=== PATIENT | male | born 1960 | race Caucasian/White ===

== ENCOUNTER 2016-08-06 08:47 | Outpatient (CLI) | payer MEDICARE ==
[~2016-08-06] VITALS: Ht 182.9 cm; Wt 116.8 kg
--- NOTE | ~2016-08-06 | HEMODYNAMI ---
PATIENT:IVONE BARTLETT MEDICAL RECORD: [id number] : 62 LOCATION:[facility] ADMISSION DATE: 08/06/16 Generatedon:08/06/201612:08 Patient name: IVONE BARTLETT Patient #: [id number] SSN: [id number] : 1960 Date of study: 08/06/2016 Page: Of Hemodynamic Procedure Report Patient Data Patient Demographics Procedure consent was obtained First Name: IVONE Gender: Male Last Name: TRI : 1960 Middle Initial: W Age: 56 year(s) Patient #: [id number] Race: Unknown SSN: [id number] Additional ID: [id number] Contact details [address]: [address] [place] [address] State: [place] City: [place] Zip code: [address] Past Medical History Allergies Allergen Reaction Date Comments Reported Other allergy 05/20/2014 Methalate Admission Admission Data Admission Date: 08/06/2016 Admission Time: 8:47 Arrival Date: 08/06/2016 Arrival Time: 10:30 Admit Source: Other Insurance Payor: Medicare Height (in.): 70 BSA: 2.37 (m2) Height (cm.): 177.8 BMI: 38.88 (kg/m2) Weight (lbs.): 271 Weight (kg.): 122.92 Lab Results Lab Result Date: 08/06/2016 Lab Result Time: 0:00 Biochemistry Name Units Result Min Max BUN mg/dl 15 --(--*-)-- 7 18 Creatinine mg/dl 0.9 --(-*--)-- 0.6 1.3 CBC Name Units Result Min Max Hemoglobin g/dl 10.9 *-(----)-- 13.5 17.5 Procedure Procedure Types Cath Procedure Diagnostic Procedure C [facility] w/Coronaries PCI Procedure Coronary Stent Initial Miscellaneous Procedures Moderate Sedation up to 30 minutes Peripheral Cath Diagnostic Procedure Cath Peripheral Jlthm-Zccwzfz-Kgv-Off Peripheral vascular Intervention Stent Stent-Fem/Popw/plasty Procedure Description Procedure Date Procedure Date: 08/06/2016 Procedure Start Time: 11:34 Procedure End Time: 12:03 Procedure Staff Name Function Yves Mcintosh MD Performing Physician Taya Wyman RT Scrub Juan Daniel Mccollum RN Nurse Neeru Hull RT Monitor Procedure Data Cath Procedure Fluoroscopy Diagnostic fluoroscopy Total fluoroscopy Time: 6.5 time: 6.5 min min Diagnostic fluoroscopy Total fluoroscopy dose: dose: 1267 mGy 1267 mGy Contrast Material Contrast Material Type Amount (ml) Isovue 370 149 Entry Location Entry Primary Successful Side Size Upsize Upsize Entry Closure Succes sful Closure Location (Fr) 1 (Fr) 2 (Fr) Remarks Device Remarks Femoral Right 5 Fr 6 Fr 6 Fr Exoseal artery Short Long Estimated blood loss: 5 ml Diagnostic catheters Device Type Used For End Catheter Placement Cordis 5Fr Pigtail LV Angiography Catheter (MP) Cordis 5Fr JL 4.0 Left Coronary Catheter (MP) Angiography Cordis 5Fr 3DRC Catheter Right Coronary (MP) Angiography Cordis Tempo 5Fr UF Multi-vessel catheter Angiography Procedure Complications No complications Procedure Medications Medication Administration Route Dosage Oxygen NC 2 l/min Lidocaine 2% added to field 20 Heparin Flush Bag added to field 2 bags (1000units/500ml NS) 0.9% NaCl I.V. 100 ml/hr Benadryl I.V. 50 mg Versed I.V. 1 mg Fentanyl I.V. 100 mcg Versed I.V. 1 mg Fentanyl I.V. 100 mcg Versed I.V. 1 mg Fentanyl I.V. 50 mcg Heparin Bolus I.V. 4000 units Integrilin (Bolus I.V. 11.3 ml 2mg/ml) Versed I.V. 1 mg Fentanyl I.V. 50 mcg Plavix P.O. 600 mg Hemodynamics Rest BSA: 2.37 (m2) HGB: 10.9 (g/dl) O2 Consumption: Estimated: 286.63 (ml/min) O2 Co nsumption indexed: Estimated:120.94 (ml/min/m) Heart Rate: 76 (bpm) Snapshots Pre Cath Intra NCS Post Cath Vital Signs Time Heart Resp SPO2 etCO2 VH1diyi NIBP (mmHg) Rhythm Pain Sedatio n Rate (ipm) (%) (mmHg) (mmHg) Status Level (bpm) 11:12:27 76 18 100 0 0 No Cuff NSR 0 (11) 10(A) , No pain 11:16:18 73 25 100 0 0 165/98(143) NSR 0 (11) 10(A) , No pain 11:20:34 72 32 99 0 0 168/94(134) NSR 0 (11) 10(A) , No pain 11:24:56 77 15 98 0 0 171/93(123) NSR 0 (11) 10(A) , No pain 11:29:19 78 21 96 0 0 145/102(126) NSR 0 (11) 10(A) , No pain 11:33:35 70 20 97 0 0 143/100(132) NSR 0 (11) 10(A) , No pain 11:37:46 78 21 97 0 0 141/98(111) NSR 0 (11) 10(A) , No pain 11:41:56 74 17 96 0 0 158/101(138) NSR 0 (11) 9(A) , No pain 11:46:14 80 15 96 0 0 173/91(128) NSR 0 (11) 9(A) , No pain 11:50:35 84 16 96 0 0 173/105(125) NSR 0 (11) 9(A) , No pain 11:55:03 79 15 98 0 0 169/80(114) NSR 0 (11) 9(A) , No pain 11:59:25 81 17 96 0 0 147/86(104) NSR 0 (11) 9(A) , No pain 12:03:41 78 16 96 0 0 135/90(115) NSR 0 (11) 10(A) , No pain Medications Time Medication Route Dose Verified Delivered Reason Not es Effectiveness by by 11:14:41 Oxygen NC 2 l/min Yves Buffie used for Dayna Mccollum RN procedure 11:18:31 Lidocaine 2% added 20ml Yves Buffie for local to vial Dayna Mccollum RN anesthetic field 11:19:29 Heparin Flush added 2 bags Yves Buffie used for Bag to Dayna Mccollum RN procedure (1000units/500ml field NS) 11:19:38 0.9% NaCl I.V. 100ml/hr Yves Frances Per physician Dayna Mccollum RN 11:19:50 Benadryl I.V. 50 mg Yves Frances used for Dayna Mccollum RN procedure 11:33:53 Versed I.V. 1 mg Yves Márquezie for sedation Dayna Mccollum RN 11:34:00 Fentanyl I.V. 100 mcg Yves Frances for sedation Dayna Mccollum RN 11:37:28 Versed I.V. 1 mg Yves Márquezie for sedation Dayna Mccollum RN 11:37:32 Fentanyl I.V. 100 mcg Yves Frances for sedation Dayna Mccollum RN 11:40:02 Versed I.V. 1 mg Yves Frances for sedation Dayna Mccollum RN 11:40:05 Fentanyl I.V. 50 mcg Yves Frances for sedation Dayna Mccollum RN 11:46:35 Heparin Bolus I.V. 4000 Yves Frances for julius ified units Dayna Mccollum RN anticoagulation with dr mcintosh 11:49:04 Integrilin I.V. 11.3 ml Yves Frances for was elijah (Bolus 2mg/ml) Dayna Mccollum RN antiplatelet 8.7 ml therapy of vial 11:56:46 Versed I.V. 1 mg Yvse Frances for sedation Dayna Mccollum RN 11:56:50 Fentanyl I.V. 50 mcg Yves Frances for sedation Dayna Mccollum RN 12:07:43 Plavix P.O. 600 mg Yves Frances for Dayna Mccollum RN antiplatelet therapy Procedure Log Time Note 10:54:44 Patient Height : 70 cm 10:54:56 Patient Weight : 271 kg 10:54:58 Arrival Date: 08/06/2016 10:30:00 AM 10:55:00 Admit Source: Other 10:55:45 Diagnostic Cath Status : Elective 10:56:31 Juan Daniel Mccollum RN sent for patient. Start room use. 10:56:32 Time tracking: Regular hours 10:56:38 Plan of Care:Hemodynamics will remain stable., Cardiac rhythm will remain stable., Comfort level will be maintained., Respiratory function will remain adequate., Patient/ family verbilizes understanding of procedure., Procedure tolerated without complication., Recovers from procedure without complications.. 10:56:45 Patient received from Pre/Post Procedure Room to CCL 1 Alert and oriented. Tansferred to table in Supine position. 10:57:02 H&P Date Dictated: 08/03/2016 Within 30 days and on chart., H&P Addendum completed by physician on day of procedure. (MUST COMPLETE FOR ALL OUTPATIENTS). 10:57:04 Pre-procedure instructions explained to patient. 10:57:07 Family in waiting room. 10:57:10 Patient NPO since Midnight. 10:58:02 Is the patient allergic to Iodine/contrast media? No. 10:58:05 Is patient on blood thinner?Yes 10:58:09 ACC The patient was administered the following blood thiners within the last 24 hours: ACCPlavix 10:58:11 Patient diabetic? Yes. 10:58:13 If diabetic: On Metformin? Yes 10:58:39 If on Metformin: Last Dose? 08/03/2016 10:58:46 Snore? Yes 11:11:33 Warm blankets applied, and will hugger turned on for patient comfort. 11:11:34 Correct patient and procedure confirmed by team. 11:11:35 Signed procedure consent form obtained from patient. 11:11:36 ECG and BP/O2 sat monitors applied to patient. 11:11:36 Vital chart was started 11:11:37 Baseline sample Acquired. 11:11:42 Rhythm: sinus rhythm 11:11:44 Full Disclosure recording started 11:11:48 Sleep apnea? No 11:11:49 Deviated septum? No 11:11:50 Opens mouth fully? Yes 11:11:50 Sticks out tongue? Yes 11:11:52 Airway obstruction? No ? 11:11:56 Dentures? No ? 11:12:04 Pre procedure: right dorsailis pedis pulse Doppler 11:12:08 Pre procedure: left dorsailis pedis pulse Doppler 11:12:11 Patient pain scale 0/10 ?. 11:12:19 IV patent on arrival in right hand with 0.9% NaCl at O. 11:14:41 Oxygen 2 l/min NC was administered by Juan Daniel Mccollum RN; used for procedure; 11:15:51 Lab Result : BUN 15 mg/dl 11:15:51 Lab Result : Hemoglobin 10.9 g/dl 11:15:51 Lab Result : Creatinine 0.9 mg/dl 11:15:55 Lab results completed and on chart. 11:16:00 Bilateral groins area was prepped with chlora-prep and aped in sterile fashion 11:16:01 Alarms reviewed by R. N. 11:16: Sharps counted by scrub and verified by R.N. 11:18:31 Lidocaine 2% 20ml vial added to field was administered by Juan Daniel Mccollum RN; for local anesthetic; 11:19:29 Heparin Flush Bag (1000units/500ml NS) 2 bags added to field was administered by Juan Daniel Mccollum RN; used for procedure; 11:19:38 0.9% NaCl 100ml/hr I.V. was administered by Juan Daniel Mccollum RN; Per physician; 11:19:50 Benadryl 50 mg I.V. was administered by Juan Daniel Mccollum RN; used for procedure; 11:24:00 Insurance Payor : Medicare 11:24:22 Physician paged 11:32:33 Physician arrived 11:32:34 --------ALL STOP TIME OUT------ 11:32:34 Final Timeout: patient, procedure, and site verified with staff and physician. All members of the team are in agreement. 11:32:37 Bilateral groins site verified by team. 11:32:39 Physical assessment completed. ASA score P 2 - A patient with mild systemic disease as per Yves Mcintosh MD. 11:32:42 Sedation plan: IV Moderate Sedation Versed, Fentanyl 11:32:48 Use device set Femoral Dx 11:32:49 Acist Syringe opened to sterile field. 11:32:49 Bag Decanter opened to sterile field. 11:32:50 Medline Cath Pack opened to sterile field. 11:32:50 Terumo 5Fr Campti Sheath opened to sterile field. 11:32:51 St Steven 260cm J .035 wire opened to sterile field. 11:32:52 Acist Hand Control opened to sterile field. 11:32:53 Acist Manifold opened to sterile field. 11:32:53 Diagnostic Infinity 5Fr Multipack catheter opened to sterile field. 11:32:53 Tegaderm 4 x 4 opened to sterile field. 11:33:02 Zero performed for pressure channel P1 11:33:09 Zero performed for pressure channel P1 11:33:16 Zero performed for pressure channel P1 11:33:27 Zero performed for pressure channel P1 11:33:38 Procedure started. 11:33:53 Versed 1 mg I.V. was administered by Juan Daniel Mccollum RN; for sedation; 11:34:00 Fentanyl 100 mcg I.V. was administered by Juan Daniel Mccollum RN; for sedation; 11:34:58 Local anesthetic to right femoral artery with Lidocaine 2% by Yves Mcintosh MD.INITIAL ACCESS ONLY 11:37:28 Versed 1 mg I.V. was administered by Juan Daniel Mccollum RN; for sedation; 11:37:32 Fentanyl 100 mcg I.V. was administered by Juan Daniel Mccollum RN; for sedation; 11:39:02 Merit 18G 9cm Percutaneous Entry needle opened to sterile field. 11:39:33 A 5 Fr sheath was inserted into the Right Femoral artery 11:40:02 Versed 1 mg I.V. was administered by Juan Daniel Mccollum RN; for sedation; 11:40:05 Fentanyl 50 mcg I.V. was administered by Juan Daniel Mccollum RN; for sedation; 11:40:28 A Cordis 5Fr Pigtail Catheter (MP) was advanced over the wire and used for LV Angiography. 11:40:34 LV hemodynamics recorded. 11:40:35 LV gram done using ARROYO 11:40:40 EF : 55 % 11:40:43 Catheter removed. 11:41:19 Abdominal angiogram w/ runoff was performed. 11:42:39 Catheter removed. 11:42:43 A Cordis 5Fr JL 4.0 Catheter (MP) was advanced over the wire and used for Left Coronary Angiography. 11:43:05 LCA angiography performed. 11:43:08 Injector settings: Ml/sec: 3, Volume: 6, 11:44:16 Catheter removed. 11:44:22 A Cordis 5Fr 3DRC Catheter (MP) was advanced over the wire and used for Right Coronary Angiography. 11:44:35 RCA angiography performed. 11:44:38 Injector settings: Ml/sec: 3, Volume: 6, 11:44:43 Catheter removed. 11:44:45 Proceeding to intervention. 11:45:56 Medtronic Launcher 6Fr AR 2.0 guide catheter opened to sterile field. 11:45:57 James Whisper J 300cm 0.014 guide wire opened to sterile field. 11:45:57 SampleOn Inc BasixCompak Inflation Kit opened to sterile field. 11:45:58 Terumo 6Fr Campti Sheath opened to sterile field. 11:46:21 Medtronic Launcher 6Fr HS II guide catheter opened to sterile field. 11:46:35 Heparin Bolus 4000 units I.V. was administered by Juan Daniel Mccollum RN; for anticoagulation; verified with dr mcintosh 11:47:18 Terumo TORQUE DEVICE PLASTIC .038 opened to sterile field. 11:47:19 Terumo ANGLE 260cm glide wire opened to sterile field. 11:47:28 Sheath upsized to a 6 Fr Short. 11:47:36 6 Fr hs 2 guide catheter was inserted over the wire 11:47:40 whisper wire advanced. 11:47:43 Wire advanced across lesion. 11:48:28 Inflation Number: 1 A Medtronic Integrity 3.0 X 22 stent was prepped and advanced across the Mid RCA. The stent was deployed at 11 MALU for 0:10 (min:sec). 11:49:04 Integrilin (Bolus 2mg/ml) 11.3 ml I.V. was administered by Juan Daniel Mccollum RN; for antiplatelet therapy; wasted 8.7 ml of vial 11:49:12 Stent catheter was removed intact over wire. 11:49:13 Wire removed. 11:49:13 Guide catheter removed. 11:50:04 Arrow 6Fr 45cm Sheath opened to sterile field. 11:50:49 Sheath upsized to a 6 Fr Long. 11:51:04 A [employer] Tempo 5Fr UF catheter was advanced over the wire and used for Multi-vessel Angiography. 11:51:11 glide wire advanced. 11:55:30 Inflation number: 1 A Cordis Powerflex Pro 6.0 x 40 x 135cm balloon was prepped and advanced across the Mid Common Femoral, Left, then inflated to 7 MALU for 0:10 (min:sec). 11:55:36 Balloon removed over the wire. 11:56:46 Versed 1 mg I.V. was administered by Juan Daniel Mccollum RN; for sedation; 11:56:50 Fentanyl 50 mcg I.V. was administered by Juan Daniel Mccollum RN; for sedation; 11:57:22 Cordis SMART 7 X 40 X 120 stent was deployed across Mid Common Femoral, Left . 11:57:31 Stent catheter was removed intact over wire. 11:58:33 Inflation number: 2 The Cordis Powerflex Pro 6.0 x 40 x 135cm balloon was reinflated across the Mid Common Femoral, Left, to 11 MALU for 0:10 (min:sec). 11:58:55 Balloon removed over the wire. 11:58:56 Wire removed. 11:59:50 Sheath downsized to 6F short pinnacle 12:00:00 Cordis 6Fr Exoseal opened to sterile field. 12:00:15 Sheath removed intact; hemostasis achieved with Exoseal to the Right Femoral artery. 12:00:19 Procedure ended.(Physican Out) 12:01:32 Fluoroscopy time 06.50 minutes. 12:01:49 Fluoroscopy dose: 1267 mGy 12:01:49 Flurop Dose total: 1267 12:01:53 Contrast amount:Isovue 370 149ml. 12:01:55 Sharps counted by scrub and verified by R.N. 12:01:56 Insertion/operative site no bleeding no hematoma. 12:01:59 Post-op/insertion site Right Femoral artery dressed using a 4 x 4 and Tegaderm. 12:02:01 Post right femoral artery:stable 12:02:23 Post Procedure Pulses reassessed and unchanged 12:02:29 Post procedure rhythm: unchanged. 12:02:32 Estimated blood loss: 5 ml 12:02:34 Post procedure instruction explained to patient.Patient verbalizes understanding. 12:02:34 Patient needs reinforcement of post procedure teaching. 12:03:30 Procedure type changed to Cath procedure, Diagnostic procedure, LHC, LHC w/Coronaries, PCI procedure, Coronary Stent Initial, Miscellaneous Procedures, Moderate Sedation up to 30 minutes, Peripheral Cath Diagnostic Procedure, Cath Peripheral, Cnahs-Pxfyaxk-Lkw-Off, Peripheral vascular Intervention, Stent, Stent-Fem/Popw/plasty 12:03:32 Procedure and supply charges have been captured, reviewed, submitted and are correct. 12:03:37 Procedure Complication : No complications 12:03:39 Vital chart was stopped 12:03:40 See physician's report for complete and final results. 12:03:44 Report given to Pre/Post Procedure Room. 12:03:48 Patient transfered to Pre/Post Procedure Room with Stretcher. 12:03:50 Procedure ended. 12:03:50 Full Disclosure recording stopped 12:03:59 ACC-PCI Only Patient was given prescriptions, or instructed by Yves Mcintosh MD to start/continue the following medications upon discharge: Plavix 12:04:00 End room use (Document Last) 12:07:43 Plavix 600 mg P.O. was administered by Juan Daniel Mccollum RN; for antiplatelet therapy; Intervention Summary Intervention Notes Time ActionType Lesion and Equipment Action# Pressure Duration Attributes Used 11:48:28 Place stent Mid RCA Medtronic 1 11 00:10 Integrity 3.0 X 22 stent 11:55:30 Inflate Mid Common Cordis 1 7 00:10 balloon Femoral, Powerflex Left Pro 6.0 x 40 x 135cm balloon 11:57:22 Deploy self Mid Common Cordis 1 expanding Femoral, SMART 7 X stent Left 40 X 120 stent 11:58:33 Reinflate Mid Common Cordis 2 11 00:10 balloon Femoral, Powerflex Left Pro 6.0 x 40 x 135cm balloon Device Usage Item Name Manufacture Quantity Catalog Hospital Part Current Minimal Lot# / Number Charge Number Stock Stock Serial# Code Acist Acist 1 44685 [id number] 032740 529560 20 Syringe Medical Systems Inc Bag Decanter Microtek 1 2002S 459141 24791 044866 5 Medical Inc. Medline Cath Cardinal 1 [id number] 769168 86001 699065 5 Pack Health Terumo 5Fr Terumo 1 [id number] 846186 570751 246216 [address] [facility] Steven 1 182078 084795 883902 822679 30 260cm J .035 wire Acist Hand Acist 1 76904 724128 558705 751701 5 Control Medical Systems Inc Acist Acist 1 95158 317958 430140 019925 5 Matrix Electronic Measuring Medical Systems Inc Diagnostic Cardinal 1 CX2235 237389 80075 690422 30 Infinity 5Fr Health Multipack catheter Tegaderm 4 x 3M 1 1626W 197750 438494 337680 5 4 Merit 18G Merit 1 [id number] 093177 672818 471953 5 9cm Medical Percutaneous Entry needle Cordis 5Fr Cardinal 1 006701 5 Pigtail Health Catheter (MP) Cordis 5Fr Cardinal 1 107551 5 JL 4.0 Health Catheter (MP) Cordis 5Fr Cardinal 1 129644 5 3DRC Health Catheter (MP) Medtronic Medtronic 1 [id number] 685332 00087 016685 1 Launcher 6Fr AR 2.0 guide catheter James James 1 [id number] 818346 835452 643980 5 Whisper J Vascular 300cm 0.014 guide wire Merit Merit 1 [id number] 019989 137176 088657 15 BasixCompak Medical Inflation Kit Terumo 6Fr Terumo 1 QTE072 444646 927098 186860 40 Campti Sheath Medtronic Medtronic 1 [id number] 674241 17681 280385 1 Launcher 6Fr HS II guide catheter Terumo Hannah 1 TD01 341998 191128 275728 5 TORQUE Scientific DEVICE PLASTIC .038 Terumo ANGLE Terumo 1 [id number] 492284 955994 288330 5 260cm glide wire Medtronic Medtronic 1 [id number] 291202 144929 1 [id number] Integrity 3.0 X 22 stent Arrow 6Fr Teleflex 1 CL-06376 303861 442991 796950 5 45cm Sheath Cordis Tempo Cardinal 1 [id number] 026195 993046 671493 10 5Fr UF Health catheter Cordis Cardinal 1 [id number] 157345 992329 822457 5 Powerflex Health Pro 6.0 x 40 x 135cm balloon Cordis SMART Cardinal 1 [id number] 995019 337589 0 [id number] 7 X 40 X 120 Health stent Cordis 6Fr Cardinal 1 [id number] 782898 957509 650960 10 [employer] [facility] Soc[employer] Signature Audit [place] Stage Time Signature Unsigned Intra-Procedure 08/06/2016 Neeru Hull 12:08:46 PM RT(R) Signatures Monitor : Neeru Hull RT Signature : Date : Time : [facility] [address] [place] [address]
[~2016-08-06 08:47] MED LIST: ACETAMINOPHEN325 MG PO; ACIDOPHILUS LAC1 CAP PO; BACLOFEN10 MG PO; BAYER CHEWABLE81 MG PO; CLEOCIN HCL300 MG PO; COLACE100 MG PO; COREG25 MG PO; CYMBALTA60 MG PO; DILANTIN50 MG PO; DURAGESIC1 PATCH .3 TRANSDERM; FUROSEMIDE20 MG PO; GABAPENTIN100 MG PO; JANUVIA50 MG PO; KADIAN60 MG PO; KLONOPIN1 MG PO; LIPITOR10 MG PO; LIPITOR40 MG PO; LISINOPRIL10 MG PO; LYRICA200 MG PO; MIRALAX17 GM PO; MULTIPLE VITAMI1 TA1 PO; NITROSTAT0.4 MG SL; PEPCID40 MG PO; PERCOCET 10/3251 TA1 PO; PLAVIX75 MG PO; PRILOSEC20 MG PO; SEROQUEL50 MG PO; TOPROL XL25 MG PO; TRAZODONE HCL150 MG PO; TRIGLIDE160 MG PO; TYLENOL W/CODEI1 TAB PO; VITAMIN D31000 UNIT PO; VITAMIN D5000 UNIT; VITAMIN D5000 UNIT PO
[2016-08-06 09:11] VITALS: BP 105/65; BMI 37.4
[2016-08-06] MEDS ORDERED: HUMULIN 70100 UNIT/1 SC ×3 (09:20→09:21)
[2016-08-06] MEDS ORDERED: LANTUS INSULIN10 ML SC (09:22)
[2016-08-06] MEDS ORDERED: KLONOPIN0.5 MG PO (09:23)
[2016-08-06] MEDS ORDERED: OMNICEF300 MG PO (09:25)
[2016-08-06] MEDS ORDERED: OMEPRAZOLE20 M1 (09:28)
[2016-08-06] MEDS ORDERED: PROVERA 5 MG TAB5 MG PO (09:28)
[2016-08-06] MEDS ORDERED: OMEPRAZOLE20 M1 PO (09:29)
[2016-08-06] MEDS ORDERED: SYNTHROID88 MCG (09:31)
[2016-08-06] MEDS ORDERED: GABAPENTIN100 MG PO (09:33)
[2016-08-06] MEDS ORDERED: ACETAMINOPHEN325 MG PO (09:33)
[2016-08-06] MEDS ORDERED: MELATONIN 3 MG1 TAB PO (09:34)
[2016-08-06 09:35] LABS: BASOPHILS 0.3 % (0-2); EOSINOPHILS 2.8 % (0-7); HEMATOCRIT 34.5 % (42.0-54.0); HEMOGLOBIN 10.9 g/dL (13.5-17.5); IMMATURE GRANULOCYTES 0.4 % (0-5); LYMPHOCYTES 21.2 % (15-50); MCH 28.5 pg (26.0-34.0); MCHC 31.6 g/dL (31.0-37.0); MCV 90.1 fL (80.0-100.0); MEAN PLATELET VOLUME 10.1 fL (7.4-10.4); MONOCYTES 7.2 % (2-11); NEUTROPHILS 68.1 % (40-80); RBC 3.83 10x6/uL (4.20-6.10); RDW 14.8 % (11.5-14.5); WBC 9.5 10x3/uL (4.8-10.8)
[2016-08-06] MEDS ORDERED: REQUIP0.25 MG PO (09:35)
[2016-08-06 09:36] LABS: PLATELET COUNT 278 10x3/uL (130-400)
[2016-08-06] MEDS ORDERED: VITAMIN B-122500 MCG PO (09:37)
[2016-08-06] MEDS ORDERED: VITAMIN D5000 UNIT PO (09:39)
[2016-08-06] MEDS ORDERED: CLARITIN 10 MG10 MG PO (09:39)
[2016-08-06] MEDS ORDERED: FOLIC ACID1 MG PO (09:40)
[2016-08-06] MEDS ORDERED: TRADJENTA5 MG PO (09:41)
[2016-08-06] MEDS ORDERED: TRICOR145 MG PO (09:42)
[2016-08-06] MEDS ORDERED: SIMETHICONE PO (09:45)
[2016-08-06 09:47] LABS: CALC OSMOLALITY 286 mosm/kg (275-300); CALCIUM 8.9 mg/dL (8.5-10.1); CHLORIDE - SERUM 106 mmol/L (98-107); CREATININE - SERUM 0.9 mg/dL (0.6-1.3); GLUCOSE 157 mg/dL (74-106); POTASSIUM - SERUM 4.3 mmol/L (3.5-5.1); SODIUM 142 mmol/L (136-145); UREA NITROGEN 15 mg/dL (7-18); eGFR NON AFRICAN AMERICAN > 90 mL/min (90-120)
[2016-08-06 10:01] LABS: CKMB 1.1 U/L (0.0-3.6); CREATINE KINASE 116 UL (21-232)
[2016-08-06 10:02] LABS: TROPONIN-I < 0.017 ng/mL (0.000-0.060)
--- NOTE | 2016-08-06 12:47 | NUR ---
TRANSFER FROM FOOD PHOTOGRAPHER. VS WNL. RIGHT GROIN STABLE WITHOUT BLEEDING OR HEMATOMA NOTED.
[2016-08-06 13:22] VITALS: BP 162/74; Ht 182.9 cm; Wt 116.8 kg
--- NOTE | 2016-08-06 16:05 | NUR ---
BED REST UP. GROIN STABLE.
--- NOTE | 2016-08-06 17:06 | NUR ---
BRAX[place] CALLED VALENTÍN, CLINICAL LIAISON FOR [facility], , NOTIFIED THAT PT WILL BE READY TO DISCHARGE BACK TO [facility] IN THE MORNING AT 0800. CM FAXED DISCHARGE ORDER AND CHART TO [facility] AT [phone]. FOR DISCHARGE, NURSE REPORT TO BE CALLED TO [facility] AT [phone], FAX DISCHARGE INFORMATION TO [phone]. [facility] TO PROVIDE VAN TRANSPORTATION IF PT IS ABLE TO SIT FOR DURATION OF TRIP TO [place]. HECTOR SHAH, CASE MANAGEMENT
[2016-08-06 19:00] VITALS: BP 138/99
--- NOTE | 2016-08-06 23:13 | NUR ---
INITIAL ROUNDS COMPLETED AT 1915 HRS. PT HAS C/O LEG PAIN. INFORMED THAT HE ALREADY HAS TAKEN NORCO. ASSESSMENT COMPLETEDA T 194 HRS. VSS. SR PER CM HR 85. O2 2LNC. R GROIN CLEAN,DRY AND INTACT WITHOUT BLEEDING OR SWELLING. L LEG WARM TO TOUCH. 2+ L PEDAL EDEMA. 1+ EDEMA TO R LEG. DRESSING TO L FOOT CLEAN, DRY AND INTACT. BOOT ONPLACE. L ARM FLACCID AND MINIMAL MOCVEMENT TO L LEG. LUNGS DIMINISHED IN BASES BILAT. BRUISE NOTED TO L ARM. PT BECOMING BELLERGERNT. DEMANDING HIS MEDICATION. INFORMED THAT THEY WERE NOT ORDERED AND WILL CALL MD WHEN ASSESSMENTSDONE. PT DEMANDING MEDS BETH. DR. TRINH PAGED AT 2039 HRS. RETURNS PAGE AT 2049 HRS. INFORMED OF PT'S WISH AND NEW ORDERES RECEIVED AND NOTED. PM FSBS 210. PT REFUSED PM INSULIN. PM MEDS GIVEN. PT CURRETNLY RESTING WITH EYES CLOSED. RESP EVEN AND REGULAR. SR UP X2, CALL LIGHT WITHIN REACH.
[2016-08-07] VITALS: BP 165/81
--- NOTE | 2016-08-07 | NUR ---
PT RESTING WITH EYES CLOSED. RESP EVEN AND REGULAR. NO CHANGES TO R GROIN OF BILAT FEET NOTED. PALPABLE PEDAL PULSES. AYAD CONTINUE TO MONITOR. SR UP X2, CALL LIGHT WITHIN REACH.
--- NOTE | 2016-08-07 02:32 | NUR ---
BED WET FROM SWEATING. BED LINENS BEING CAHGED AT THIS TIME. WILL CONTINUE TO MONITOR.
[2016-08-07 04:00] VITALS: BP 127/85
--- NOTE | 2016-08-07 04:12 | NUR ---
NO CHAGES TO R GROIN OR PEDAL PULSES. PT MUMBLED TO GET OUT. WILL CONTINUE TO MONITOR.
--- NOTE | 2016-08-07 06:21 | NUR ---
AM FSBS 139. NO COVERAGE NEEDED. PT RESTED WELL DURING SHIFT. NEDS MET;WILL CONTINUE TO MONITOR.
--- NOTE | 2016-08-07 07:30 | NUR ---
RECEIVED PT IN BED YELLING OUT WANTING SOMEONE TO STAY IN ROOM SO IF HE NEEDED SOMETHING THEY WOULD BE THERE EXPLAINED STAFF COULD NOT STAY IN ROOM BUT IF PT WOULD USE CALL LIGHT SOMEONE WOULD COME ASSIST SOON POSSIBLE WILL CONTINUE TO MONITOR
[2016-08-07 08:01] VITALS: BP 184/82
[2016-08-07] MEDS ORDERED: PLAVIX75 MG PO (08:03)
--- NOTE | 2016-08-07 10:14 | NUR ---
WOUND CARE: LEFT HEEL NOTED WITH OPEN AREA OUTER EDGES WHITE WOUND BED PALE PINK NO DRAINAGE OR EXCESSIVE WARMTH FOUL ODOR NOTED CLEANSED AREA WITH WOUND CLEANSER APPLIED NS WTD DRSG LEFT LATERAL FOOT NOTED WITH OPEN AREA WHITE AROUND EDGES WOUND BED NOTED WITH ESCHAR SCANT YELLOW DRAINAGE FOUL ODOR NOTED NO EXCESSIVE WARMTH NOTED AREA CLEANSED WITH WOUND CLEANSE NS WTD DRSG APPLIED MEASUREMENT: LT HEEL 2CM X 1.75CM X O.4CM DEPTH LEFT LATERAL FOOT 3CM X 2.5CM X 0.3CM NURSING TO CONTINUE PREVIOUS WOUND CARE ORDERS UPON RETURN THIS AM
--- NOTE | 2016-08-07 11:00 | NUR ---
REVIEWED DISCHARGE INSTRUCTIONS WITH PT STATES UNDERSTANDING STATES UNABLE TO SIGN THEM
--- NOTE | 2016-08-07 11:30 | NUR ---
FSBS 204 8UNITS REG INSULIN GIVERN SQ ABD
[2016-08-07 11:34] VITALS: BP 167/82
--- NOTE | 2016-08-07 12:15 | NUR ---
SALINE LOCK DCD TO RT HAND WITH IV CATHETER INTACT SITE FREE OF REDNESS/EDEMA PT DISCHARGED BACK TO [facility] IN STABLE CONDITION LEFT UNIT VIA W/C WITH ALL PERSONAL BELONGINGS
--- NOTE | 2016-08-10 18:08 | OP ---
PATIENT NAME: IVONE BARTLETT MEDICAL RECORD: [id number] :62 LOCATION:[facility] ADMISSION DATE: SURGEON: DYLAN TRINH MD DATE OF OPERATION: 08/06/2016 PROCEDURES: 1. Stent placement, femoral left. 2. MANUFACTURING HELPER, femoral left. 3. Aortofemoral runoff. 4. Abdominal aortography. INDICATION: Claudication and peripheral vascular disease. PROCEDURE IN DETAIL: After informed consent was obtained and after a detailed explanation detailed explanation of risks, benefits as well as alternative therapies, the patient elected to proceed with angiogram and angioplasty. The right femoral area had a preexisting sheath from cardiac intervention. All catheters exchanged through this sheath. FINDINGS: The abdominal aortography was performed. The catheter was pulled down for aortofemoral runoff. Abdominal aortography reveals no significant abdominal aortic disease. No dissection or aneurysm formation. No renal artery stenosis. RIGHT LEG: A. Iliac: The common internal and external iliacs have mild irregularities, but no flow-limiting stenosis. B. Femoral system: The common and deep femoral are widely patent. The superficial femoral has a 90% to 95% stenosis in the mid vessel. C. Popliteal and infrapopliteal vessels: There is wide patency of the popliteal. The anterior tibial is totally occluded, but there is 2-vessel runoff, although diffusely diseased through the posterior tibial and peroneal. LEFT LEG: A. Iliac: The common internal and external iliacs have mild irregularities, but no flow-limiting stenosis. B. Femoral system: The common femoral has a 90% stenosis. After this, the superficial and deep femoral are closed. There is a graft that is a femoral popliteal graft. This is widely patent. C. The distal vessels give 2-vessel runoff to the foot through the posterior tibial and peroneal. MANUFACTURING HELPER STENT OF THE LEFT COMMON FEMORAL: Just before the graft, there is a 90% stenosis in the left common femoral, which was addressed with a 6.0 balloon. This yielded suboptimal result with severe intimal dissection. Stenting was undertaken with a 7 x 40 SMART stent. Result was 0% residual stenosis. No further dissection. OVERALL IMPRESSION: Successful percutaneous transluminal angioplasty stent of the left common femoral going from 80% to 90% initial stenosis to 0% residual stenosis. TRANSINT:[id number] Voice Confirmation ID: [id number] DOCUMENT ID: [id number] OPERATIVE REPORT [id number] IVONE BARTLETT, DYLAN CLAY at 1808 CC: [id number] DICTATION DATE: 08/06/16 1206 PUBLIC POLICY MEDIATOR: 08/06/16 2302 DEP CLI 08/07/16 [place] [id number] [place] [address]
--- NOTE | 2016-08-10 18:08 | DS ---
PATIENT:IVONE MULLER :62 MEDICAL RECORD: [id number] DISCHARGE SUMMARY ADMISSION DATE: 08/06/16 DISCHARGE DATE: 08/07/16 DISCHARGE DIAGNOSES: 1. Angina. 2. Coronary artery disease. 3. Percutaneous transluminal coronary angioplasty stent of right coronary artery this admission. 4. Peripheral vascular disease. 5. Claudication HOSPITAL COURSE: Mr. Muller presents with anginal symptomatology, as well as claudication. He underwent cardiac catheterization, as well as aortofemoral runoff, found to have critical disease of the RCA, as well as the left common femoral, underwent successful transcatheter revascularization of both territories. He was discharged home with the addition of aspirin and Plavix to his medical regimen. He will follow up with [facility] in 1 month. TRANSINT:[id number] Voice Confirmation ID: [id number] DOCUMENT ID: [id number] DYLAN TRINH MD at 1808 CC: [id number] DICTATION DATE: 08/07/16 1008 [place] DISPATCHER: 08/07/16 2246 DEP CLI 08/07/16 [facility] [address] [place] [address]
--- NOTE | 2016-08-10 18:08 | HP ---
PATIENT: IVONE BARTLETT MEDICAL RECORD: [id number] ACCOUNT: [id number] LOCATION:[facility] : 62 ADMISSION DATE: 08/06/16 HISTORY AND PHYSICAL EXAMINATION DIAGNOSES: 1. Paroxysmal atrial fibrillation. 2. Seizure disorder. 3. Bipolar disorder. HISTORY OF PRESENT ILLNESS: This is a gentleman who presents now with cardiac issues, but after a seizure, he felt palpitations. He was found to be in atrial fibrillation, rate of 150. He was given IV Cardizem. He converted to sinus rhythm. He has not had a history of atrial fibrillation. He does have a history of low blood pressures, systolic blood pressure runs in the 80-90 range. He had no ST-T changes with the AFib. No chest pain. His troponin is normal. PHYSICAL EXAMINATION: GENERAL APPEARANCE: Well-nourished, well-developed, appears stated age. Level of distress, comfortable. PSYCHIATRIC: Mental status, alert, normal affect. Orientation, oriented to time, place and person. EYES: Lids and conjunctiva, noninjected. No discharge, no pallor. ENT: Lips, teeth, gums, normal dentition. Oropharynx, no cyanosis, no pallor. NECK: Carotid arteries, bilateral normal upstroke, no bruits, no thrills. JUGULAR VEINS: No jugular venous pressure or distention. CERVICAL LYMPH NODES: Nontender, nonenlarged. THYROID: Not enlarged. Nontender. No nodules. LUNGS: Respiratory effort, unlabored. CHEST: Normal curvature. No thoracic deformity. No chest wall tenderness. Percussion, resonant. Auscultation, clear. No wheezes, no rales, no rhonchi. CARDIOVASCULAR: Precordial exam, nondisplaced. No heaves or pericardial thrills. Rate and rhythm, regular. Heart sounds, normal S1, normal S2. No S3, no gallop, no rub. Systolic murmur, not heard. Diastolic murmur, not heard. EXTREMITIES: No cyanosis, no edema. Peripheral pulses, full and equal in all extremities, except as noted. No bruits appreciated. ABDOMEN: Soft, nondistended. Normal aorta. No bruit. Nontender. No masses. Liver, nontender, no hepatomegaly. Spleen, nontender, no splenomegaly. MUSCULOSKELETAL: No joint tenderness. No joint swelling. No erythema. NEUROLOGICAL: Normal gait, normal strength, normal tone. SKIN: Warm and dry. REVIEW OF SYSTEMS: The patient reports easy bruising but reports no swollen glands. The patient reports no fever, no night sweats, no significant weight gain, no significant weight loss. No significant exercise tolerance. The patient reports no dry eyes, no irritation, no vision change. Patient reports no difficulty hearing and no ear pain. Patient reports no frequent nose bleeds or nose and sinus problems. Patient reports on arm pain on exertion. No shortness of breath while lying down. No history of heart murmur. Patient reports no cough, no wheezing or coughing up blood. Patient reports no abdominal pain, no vomiting. Normal appetite. No diarrhea and not vomiting blood. No nausea and no constipation. Patient reports no incontinence. No difficulty urinating. No hematuria. No increased frequency. Patient reports no muscle aches. No weakness, no arthralgias, no back pain. No swelling of the extremities. Patient reports no abnormal mole, no jaundice, no rashes. Reports HISTORY AND PHYSICAL [id number] IVONE BARTLETT no loss of consciousness. No weakness and no numbness. No seizures, dizziness, or headaches. The patient reports no depression, no sleep disturbance, feeling safe in a relationship and no alcohol abuse. Patient reports on fatigue. Reports no runny nose or sinus pressure. No itching, no hives, and no frequent sneezing. OVERALL IMPRESSION: Paroxysmal atrial fibrillation, difficult to treat with antiarrhythmics due to low blood pressure. We will put him on digoxin 0.25 daily as he has a normal BUN and creatinine. Hopefully, this will maintain sinus rhythm. Further outpatient workup with echocardiogram in the near future. TRANSINT:[id number] Voice Confirmation ID: [id number] DOCUMENT ID: [id number] DYLAN TRINH MD at 1808 CC: [id number] DICTATION DATE: 08/07/16 1006 CLIENT SERVICE EXECUTIVE: 08/07/16 1227 DEP CLI 08/07/16 [place] [id number]
--- NOTE | 2016-08-10 18:08 | DS ---
PATIENT:IVONE BARTLETT :62 MEDICAL RECORD: [id number] DISCHARGE SUMMARY ADMISSION DATE: 08/06/16 DISCHARGE DATE: 08/07/16 DISCHARGE DIAGNOSES: 1. Paroxysmal atrial fibrillation. 2. Seizure disorder. 3. Bipolar disorder. HOSPITAL COURSE: This is a gentleman who presented with atrial fibrillation converted to sinus rhythm with IV Cardizem, was placed on digoxin orally as he has a baseline low blood pressure, no further atrial fibrillation. We will follow up with [facility] for an echocardiogram as an outpatient. TRANSINT:[id number] Voice Confirmation ID: [id number] DOCUMENT ID: [id number] DYLAN TRINH MD at 1808 CC: [id number] DICTATION DATE: 08/07/16 1007 SEE SUPERVISOR: 08/07/16 2212 [facility] CLI 08/07/16 [address] [id number] [place] [address]
--- NOTE | 2016-08-10 18:08 | OP ---
PATIENT NAME: IVONE BARTLETT MEDICAL RECORD: [id number] :62 LOCATION:[facility] ADMISSION DATE: SURGEON: DYLAN TRINH MD DATE OF OPERATION: 08/06/2016 PROCEDURES: 1. PTCA stent RCA. 2. Left heart catheterization. 3. Selective coronary angiography. 4. Left ventriculogram. DESCRIPTION OF PROCEDURE: After informed consent was obtained and after detailed explanation of risks, benefits as well as alternative therapies, the patient elected to proceed with angiogram and angioplasty. The right femoral area was prepped and draped in normal sterile fashion. The right femoral artery was cannulated via modified Seldinger technique with placement of a 6-Vietnamese sheath. All catheters were exchanged through this sheath. FINDINGS: The left ventriculogram was performed in standard 30-degree ARROYO view, reveals good cardiac wall motion throughout all segments. Overall ejection fraction estimated 60%. SELECTIVE CORONARY ANGIOGRAPHY: 1. Left main showed no significant angiographic disease. 2. Left anterior descending has moderate irregularities, but no flow-limiting stenosis. 3. The left circumflex has moderate irregularities, but no flow-limiting stenosis. 4. Right coronary has an 80% stenosis in the mid vessel. PTCA STENT OF THE RCA: The stent used was a 3.0 x 22 mm Integrity. Result was 0% residual stenosis. OVERALL IMPRESSION: Successful percutaneous transluminal coronary angioplasty stent of the right coronary artery going from 80% initial stenosis to 0% residual stenosis. TRANSINT:[id number] Voice Confirmation ID: [id number] DOCUMENT ID: [id number] DYLAN TRINH MD at 1808 CC: [id number] DICTATION DATE: 08/06/16 120 STAFF SUBMARINE WARFARE OFFICER: 08/06/162030 [facility] CLI 08/07/16 [place] [address]
== END 2016-08-07 12:15 | disposition other institution (70) ==
LOC: D.CATH 08:47 → D.M2 12:40 → D.CATH 08-07 12:15
PROVIDERS: Internal Medicine Interventional Cardiology
DX: I25.119 Atherosclerotic heart disease of native coronary artery with unspecified angina pectoris (principal); I48.0 Paroxysmal atrial fibrillation; I70.212 Atherosclerosis of native arteries of extremities with intermittent claudication, left leg; G40.909 Epilepsy, unspecified, not intractable, without status epilepticus; F31.9 Bipolar disorder, unspecified